=== PATIENT | male | born 1995 | race Hispanic/Latino ===

== ENCOUNTER 2020-03-21 15:14 | Emergency (ER) | payer OTHER ==
[~2020-03-21] VITALS: Ht 180.3 cm; Wt 56.7 kg
[2020-03-21] MEDS ORDERED: SODIUM CHLORIDE 0.9% 1000ML 1,000 ML ONE (15:49)
[2020-03-21] MEDS ORDERED: SODIUM CHLORIDE 0.9% 1000ML 1,000 ML IV ONE (16:00)
[2020-03-21] MEDS ORDERED: FLUORESCEIN SOD(OPTH) 1 MG STRP OP ONE (16:30)
[2020-03-21] MEDS ORDERED: TETRACAINE HCL 0.5% OPTH SOLN 4 ML BTL OP ONE (16:30)
[2020-03-21 17:02] VITALS: BP 123/79
--- NOTE | 2020-03-21 17:06 | Emergency Department Note ---
History of Present Illnes History of Present Illness Chief Complaint: Eye, Ear, Nose, Throat, Dental History of Present Illness This is a 24 year old male PATIENT IN FROM HOME WITH COMPLAINTS OF GETTING HYDROCHLORIC ACID IN RIGHT EYE AT WORK; STATES DID RINSE HIS EYES PRIOR TO ARRIVAL; RATES PAIN 2/10. Historian: Patient Arrival Mode: Car Community Board Member Required: No Onset (how long ago): hour(s) Location: right eye Quality: pain Radiation: Reports non-radiation Severity: mild Onset quality: sudden (he rinsed eye when it happened (while working for [employer])) Duration (how long): hour(s) Timing of current episode: constant Progression: improving Chronicity: new Context: Denies recent illness Relieving factors: none Exacerbating factors: none Associated symptoms: Reports denies other symptoms Treatments prior to arrival: none Past Medical/Family History Physician Review I have reviewed the patient's past medical and family history. Any updates have been documented here. Past Medical History Recent Fever: No Clinical Suspicion of Infectio: No New/Unexplained Change in Ment: No Past Medical History: None Past Surgical History: None Social History Smoking Cessation: Never Smoker Counseling Performed: No Alcohol Use: Occasional Any Illegal Drug Use: Yes (AMIRA DAILY) TB Exposure/Symptoms: No Physically hurt or threatened: No Family History Family history of heart diseas: No Other Last Tetanus: UTD Any Pre-Existing Lines (PICC,: No Is patient up to date on immun: No Last Flu: NO Last Pneumovax: NO Review of Systems Review of Systems Constitutional: Reports no symptoms EENTM: Reports as per HPI Cardiovascular: Reports no symptoms Respiratory: Reports no symptoms Gastrointestinal: Reports no symptoms Genitourinary: Reports no symptoms Musculoskeletal: Reports no symptoms Integumentary: Reports no symptoms Neurological: Reports no symptoms Psychological: Reports no symptoms Endocrine: Reports no symptoms Hematological/Lymphatic: Reports no symptoms Physical Exam Related Data Allergies: Coded Allergies: No Known Allergies (Unverified , 03/21/20) Triage Vital Signs Vital Signs Date Time Temp Pulse Resp B/P (MAP) Pulse Ox O2 Delivery O2 Flow Rate FiO2 03/21/20 15:22 98.9 67 20 138/101 100 Vital signs reviewed: Yes Physical Exam CONSTITUTIONAL Constitutional: Reports well-developed, Reports well-nourished HENT HENT: Reports normocephalic, Reports atraumatic, Reports oropharynx clear/moist, Reports nose normal HENT L/R: Reports left ext ear normal, Reports right ext ear normal EYES Eyes: Reports PERRL, Reports conjunctivae normal, Reports EOM normal, Reports lids normal (mild conjunctival injection right eye) NECK Neck: Reports ROM normal PULMONARY Pulmonary: Reports effort normal, Reports breath sounds normal CARDIOVASCULAR Cardiovascular: Reports regular rhythm, Reports heart sounds normal, Reports capillary refill normal, Reports normal rate GASTROINTESTINAL Abdominal: Reports soft, Reports nontender, Reports bowel sounds normal GENITOURINARY Genitourinary: Reports exam deferred SKIN Skin: Reports warm, Reports dry MUSCULOSKELETAL Musculoskeletal: Reports ROM normal NEUROLOGICAL Neurological: Reports alert, Reports oriented x 3, Reports no gross motor or sensory deficits PSYCHOLOGICAL Psychological: Reports mood/affect normal, Reports judgement normal Assessment & Plan Medical Decision Making MDM 1 L NS irrigation with Ricky lens then checked pH = 7. Then I stained with fluoroscein - no abrasion, no uptake Reassessment Reassessment cortisporin ophth susp 3 gtts q4h x 5 days, f/u Ophtho tomorrow Assessment & Plan Final Impression: (1) Chemical conjunctivitis Depart Disposition: HOME, SELF-CARE Last Vital Signs Date Time Temp Pulse Resp B/P (MAP) Pulse Ox O2 Delivery O2 Flow Rate FiO2 03/21/20 15:50 66 14 128/94 100 03/21/20 15:22 98.9 Medications in the ED Sodium Chloride 1,000 ml @ ud STK-MED ONCE .ROUTE ; Start 03/21/20 at 15:49; Stop 03/21/20 at 15:43; Status DC Sodium Chloride 1,000 ml @ 0 mls/hr Q0M ONCE IV Last administered on 03/21/20at 15:57; Admin Dose 1,000 MLS/HR; Start 03/21/20 at 16:00; Stop 03/21/20 at 16:01; Status DC Fluorescein Sodium 1 mg ONCE ONCE OP Last administered on 03/21/20at 16:35; Admin Dose 1 MG; Start 03/21/20 at 16:30; Stop 03/21/20 at 16:31; Status DC Tetracaine HCl 1 ml ONCE ONCE OP Last administered on 03/21/20at 16:35; Admin Dose 1 ML; Start 03/21/20 at 16:30; Stop 03/21/20 at 16:31; Status DC KEVIN JONES MD Mar 21, 2020 17:06
== END 2020-03-21 17:12 | disposition home or self-care (01) ==
LOC: ER 15:14
DX: H10.211 Acute toxic conjunctivitis, right eye (principal); Y99.0 Civilian activity done for income or pay
CPT/HCPCS: 99283; J7030